=== PATIENT | female | born 1975 | race American Indian/Alaskan Native ===

== ENCOUNTER 2017-08-18 08:51 | Day surgery (SDC) | payer OTHER ==
[2017-08-17 11:03] VITALS: BMI 53.2
[~2017-08-18 08:51] MED LIST: Bupivacaine HCl 0.5% PF (10 ml) Inj ONE; Lidocaine Hydrochloride 5 ML INJ ONE; MethylPREDNISolone Depo 40 mg/ml Inj ONE
[2017-08-18] MEDS ORDERED: Lactated Ringer's 500 ML IV ONE ×2 (10:48)
[2017-08-18] MEDS ORDERED: Midazolam 2 MG/2 ML VIAL ONE (11:06)
[2017-08-18 12:28] VITALS: BP 120/75; PULSE 72; RESP 18; TEMP 97.6; O2SAT 98
--- NOTE | 2017-08-18 13:25 | OP ---
PREOPERATIVE DIAGNOSES: 1. Lumbar spondylosis without myelopathy. 2. Myalgias. POSTOPERATIVE DIAGNOSES: 1. Lumbar spondylosis without myelopathy. 2. Myalgias. PROCEDURE: 1. Bilateral L3-L4, L4-L5, L5-S1 medial branch blocks. 2. Trigger point injections. X-RAY: [id number], fluoroscopy of the spine. ANESTHESIA: MAC/local. SURGEON: José Cho MD COMPLICATIONS: None. BLOOD LOSS: 2 mL. INDICATION: On physical exam, this patient's pain was made worse by side bending toward the affected side or extending the spine (backward bending). The patient's back will generally feel stiff in the morning, and prolonged inactivity such as sitting, standing for prolonged periods causes the axial pain to refer to the mid lower back. This pain is intractable and unresponsive to conservative management. The pain is adversely affecting quality of life and activities of daily living. TECHNIQUE: After comprehensive informed consent was obtained, the risks of the procedure explained and questions answered. The patient was placed prone on the operating table in a comfortable position. Confirmation of the procedure to be performed was obtained from the patient. The skin overlying the area to be injected was confirmed and cleaned in a strict sterile fashion using chlorhexidine. Sterile drape was placed around the area to be injected. The area to be injected was superficially anesthetized with 1 mL of 1% lidocaine using a 27-gauge, 1.25-inch needle at each level noted above. Under fluoroscopic guidance, a curved 22-gauge, 3.5-inch spinal needle was advanced until the tip of the needle was ventro-medial to position the tip adjacent to the articular pillar, in contact with bone midway between the zygapophyseal joints above and below. The patient experienced no paresthesia during needle placement. The bone was contacted, and the C-arm was rotated laterally to confirm proper needle placement. The patient experienced no paresthesias in the upper extremities during needle placement. After negative aspiration for blood, 0.5 mL of non-ionic contrast was injected to outline the medial branch nerve. Then, 1 mL of a mixture of 0.25% Marcaine and 80 mg of Depo-Medrol was slowly injected at each level. The needle was removed, and a Band-Aid was placed over the puncture site. The fluoroscopic image was stored for the medical record. Trigger Point Injections: A 27-gauge needle was used to inject trigger point areas in paralumbar muscles, parathoracic muscles, and upper gluteal muscles. Needle was redirected to sciatic nerve branches. Total volume of 12 mL of 0.25% Marcaine mixed with 40 mg Kenalog. Intermittent aspiration was done throughout with no heme or CSF aspirated throughout. Patient tolerated procedure well. ASSESSMENT: Upon discharge, the patient noted more than 80% relief in the affected painful area. The patient was given a pain diary to utilize over the next 4 hours while performing activities that are normally aggravating. This will provide a quantitative value of how much of the pain is related to osteoarthritis of the facets. The patient understands that this block is diagnostic and temporary. If there is significant pain relief during the next 4 hours, we will schedule for radiofrequency ablation of the offending pain fibers around the affected facet joints to help provide long-term relief. DISPOSITION: Patient was given instructions to follow up in two weeks and was discharged in stable condition. No events or complications. José Cho MD
--- NOTE | 2017-08-19 15:21 | RAD ---
PROCEDURE: HISTORY: Fluoroscopy provided for stated lumbar facet block COMPARISON: None TECHNIQUE: Total fluoroscopic time utilized during the procedure: 44.2 seconds. Total dose 0.21117 mGy cm squared FINDINGS: Submitted images from the current procedure: 3 Please refer to the physician's notes performing the procedure. IMPRESSION: Less than 1 hour fluoroscopic time utilized during performance of the procedure
== END 2017-08-18 12:28 | disposition home or self-care (01) ==
LOC: C.SDS 08:51
PROVIDERS: ATTEND Anesthesiology Pain Medicine
DX: M47.817 Spondylosis without myelopathy or radiculopathy, lumbosacral region (principal); M47.816 Spondylosis without myelopathy or radiculopathy, lumbar region; N92.0 Excessive and frequent menstruation with regular cycle
CPT/HCPCS: 64493; 82948; J1030; J2250; J3010; J7120

== ENCOUNTER 2017-09-15 07:19 | Day surgery (SDC) | payer OTHER ==
[2017-08-17 11:03] VITALS: BMI 53.2
[2017-09-15] MEDS ORDERED: MethylPREDNISolone Depo 40 mg/ml Inj ONE (08:09)
[2017-09-15] MEDS ORDERED: Lidocaine Hydrochloride 5 ML INJ ONE (08:09)
[2017-09-15] MEDS ORDERED: Bupivacaine HCl 0.25% PF (10 ml) Inj ONE (08:09)
[2017-09-15] MEDS ORDERED: Propofol 10 mg/ml Inj (20 ML) ONE (08:34)
[2017-09-15] MEDS ORDERED: Midazolam 2 MG/2 ML VIAL ONE (08:52)
[2017-09-15] MEDS ORDERED: Lactated Ringer's 1,000 ML IV ONE (09:03)
[2017-09-15 12:04] VITALS: BP 110/60; PULSE 90; RESP 18; TEMP 98.5; O2SAT 100
--- NOTE | 2017-09-15 15:27 | RAD ---
PROCEDURE: Fluoroscopy HISTORY: SPONDYLOSIS COMPARISON: None TECHNIQUE: Total fluoroscopic time (continuous mode) utilized during the procedure: 29.0 seconds FINDINGS: Submitted images from the current procedure: 6.0 IMPRESSION: Dosimetry 0.545 mGy meter sq.
--- NOTE | 2017-09-16 07:28 | OP ---
PROCEDURE DATE: 09/15/2017 PREOPERATIVE DIAGNOSES: 1. Lumbar spondylosis without myelopathy. 2. Myalgias. POSTOPERATIVE DIAGNOSES: 1. Lumbar spondylosis without myelopathy. 2. Myalgias. PROCEDURE: 1. Right and left L3-L4, L4-L5 and L5-S1 medial branch blocks. 2. Trigger point injections. X-RAY: [id number], fluoroscopy of the spine. ANESTHESIA: MAC/local. SURGEON: José Cho MD COMPLICATIONS: None. BLOOD LOSS: 2 mL. INDICATION: On physical exam, this patient's pain was made worse by side bending toward the affected side or extending the spine (backward bending). The patient's back will generally feel stiff in the morning, and prolonged inactivity such as sitting, standing for prolonged periods causes the axial pain to refer to the mid lower back. This pain is intractable and unresponsive to conservative management. The pain is adversely affecting quality of life and activities of daily living. TECHNIQUE: After comprehensive informed consent was obtained, the risks of the procedure explained and questions answered. The patient was placed prone on the operating table in a comfortable position. Confirmation of the procedure to be performed was obtained from the patient. The skin overlying the area to be injected was confirmed and cleaned in a strict sterile fashion using chlorhexidine. Sterile drape was placed around the area to be injected. The area to be injected was superficially anesthetized with 1 mL of 1% lidocaine using a 27-gauge, 1.25-inch needle at each level noted above. Under fluoroscopic guidance, a curved 22-gauge, 3.5-inch spinal needle was advanced until the tip of the needle was ventro-medial to position the tip adjacent to the articular pillar, in contact with bone midway between the zygapophyseal joints above and below. The patient experienced no paresthesia during needle placement. The bone was contacted, and the C-arm was rotated laterally to confirm proper needle placement. The patient experienced no paresthesias in the upper extremities during needle placement. After negative aspiration for blood, 0.5 mL of non-ionic contrast was injected to outline the medial branch nerve. Then, 1 mL of a mixture of 0.25% Marcaine and 80 mg of Depo-Medrol was slowly injected at each level. The needle was removed, and a Band-Aid was placed over the puncture site. The fluoroscopic image was stored for the medical record. Trigger Point Injections: A 27-gauge needle was used to inject trigger point areas in paralumbar muscles, parathoracic muscles, and upper gluteal muscles. Needle was redirected to sciatic nerve branches. Total volume of 12 mL of 0.25% Marcaine mixed with 40 mg Kenalog. Intermittent aspiration was done throughout with no heme or CSF aspirated throughout. Patient tolerated procedure well. ASSESSMENT: Upon discharge, the patient noted more than 80% relief in the affected painful area. The patient was given a pain diary to utilize over the next 4 hours while performing activities that are normally aggravating. This will provide a quantitative value of how much of the pain is related to osteoarthritis of the facets. The patient understands that this block is diagnostic and temporary. If there is significant pain relief during the next 4 hours, we will schedule for radiofrequency ablation of the offending pain fibers around the affected facet joints to help provide long-term relief. DISPOSITION: Patient was given instructions to follow up in two weeks and was discharged in stable condition. No events or complications. José Cho MD
== END 2017-09-15 10:15 | disposition home or self-care (01) ==
LOC: C.SDS 07:19
PROVIDERS: ATTEND Anesthesiology Pain Medicine
DX: M47.817 Spondylosis without myelopathy or radiculopathy, lumbosacral region (principal)
CPT/HCPCS: 64493; 82948; J1030; J2250; J2704; J3010; J7120

== ENCOUNTER 2018-05-04 07:45 | Day surgery (SDC) | payer OTHER ==
[2017-08-17 11:03] VITALS: BMI 53.2
[~2018-05-04 07:45] MED LIST changes: +Bupivacaine 0.25% 20 ML INJ IJ ONE; +Bupivacaine 0.75% Inj(30mL) ONE; -Bupivacaine HCl 0.5% PF (10 ml) Inj ONE; +Iohexol 240 (50 ml) ONE; +Lidocaine 2% MPF (5 ml) Inj ONE; -Lidocaine Hydrochloride 5 ML INJ ONE; -MethylPREDNISolone Depo 40 mg/ml Inj ONE; +Midazolam 2 MG/2 ML VIAL ONE; +methylPREDNISolone Depo 80 mg/ml Inj ONE
[2018-05-04 11:31] VITALS: BP 141/79; PULSE 93; RESP 18; TEMP 97.7; O2SAT 98
--- NOTE | 2018-05-04 17:05 | RAD ---
Date of service: 05/04/2018 PROCEDURE: Intraoperative Fluoroscopy. HISTORY: CERVICAL RADICULOPATHY FINDINGS: Fluoroscopic assistance was provided for cervical epidural spinal injection. Please refer to the operative report from AYANNA Ferrera.
--- NOTE | 2018-05-04 19:59 | OP ---
Copied To: José Cho MD Attending MD: José Cho MD PROCEDURE DATE: 05/04/2018 PREOPERATIVE DIAGNOSES: 1. Cervical radiculopathy. 2. 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 3. Myalgias. POSTOPERATIVE DIAGNOSES: 1. Cervical radiculopathy. 2. 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 3. Myalgias. PROCEDURE: 1. Cervical epidural steroid injection, C6-C7. 2. Epidurogram. 3. Trigger point injections. X-RAY: [id number], fluoroscopy of the spine. ANESTHESIA: MAC/local. SURGEON: José Cho MD COMPLICATIONS: None. BLOOD LOSS: 2 mL. BRIEF HISTORY AND INDICATIONS: The patient has cervical radiculopathy and upper extremity pain and tingling radiating down from the posterior neck down to the arm and posterior shoulder side to all fingers. This patient presents today for a cervical epidural steroid injection under fluoroscopic guidance at the C6-C7 interlaminar space. PROCEDURE IN DETAIL: The patient, after giving informed consent for the procedure, was brought back to the procedure room, sitting in a wheelchair. Routine monitors were applied. The patient was leant forward with his neck flexed and forehead placed on a towel on the OR table. Neck was flexed at approximately 50 degrees lateral. Lateral fluoroscopic view was obtained at the C6-C7 levels. The patient was prepped and draped in a sterile fashion. A 27-gauge needle was used to inject lidocaine 1% subcutaneously over the skin overlying the interlaminar space of C6-C7. Subsequently, a 22-gauge Tuohy needle was used to advance into the C6-C7 interlaminar area using loss of resistance technique to enter the epidural space. The needle position was confirmed in lateral views. Contrast 180 Omnipaque was injected 0.5 mL showing good epidurogram. Subsequently, 80 mg of Depo-Medrol with 1 mL of normal saline was injected with intermittent negative aspiration. No heme or CSF was aspirated throughout. No paresthesias were elicited throughout. The patient tolerated the procedure well. Vital signs remained stable. The patient reported slight reduction in pain post procedure. Epidurogram: The patient underwent cervical epidural steroid injection today. The epidural was observed at the level of C6-C7 under AP and lateral fluoroscopic guidance. 2 mL of Omnipaque 200 contrast was injected that evenly spread from level C4 to C7 level with posterior-anterior dye spread bilaterally at level of C6-C7 and C5-C6. There appeared to be a moderate degree spondylosis at the level of C5-C6 and moderate degree of spondylosis at the level of C6-C7 with disc protrusion at the level of C6-C7. The intervertebral disc height at the level of C5-C6 was slightly less than normal and intervertebral disc height at the level of C7-T1 was well maintained. The neural foramen appeared to be patent. Conclusion: Good epidural dye containment from C6-C7 with intervertebral disc protrusion at the level of C5-C6, C6-C7, maintaining less than normal intervertebral disc height at level C5-C6. Spondylosis noted at the level of C4 through T1. Copies of the images are on file. Trigger Point Injections/Greater and Lesser Occipital Nerve Blocks: Tender to palpation on cervical areas and pain shooting up posterior head. Patient signed informed consent. Cervical area was prepped and drapped in sterile fashion. A 25-gauge needle was used to inject trigger point areas in trapezious muscles, paracervical muscles, and rhomboids bilaterally. The greater and lesser occipital nerves were also injected bilaterally by inserting needle 1 cm lateral and inferior to the posterior occipital protuberance. Total volume used was 10 mL of 0.25% Marcaine mixed with 40 mg Kenalog. Intermittant aspiration was done throughout with no heme or CSF aspirated throughout. Patient tolerated procedure well. DISPOSITION: Patient was taken to the recovery room in stable condition. Patient was given instructions to follow up in two weeks and was discharged in stable condition. No events or complications. José Cho MD
== END 2018-05-04 10:00 | disposition home or self-care (01) ==
LOC: C.SDS 07:45
PROVIDERS: ATTEND Anesthesiology Pain Medicine
DX: M54.12 Radiculopathy, cervical region (principal); M50.20 Other cervical disc displacement, unspecified cervical region; M47.22 Other spondylosis with radiculopathy, cervical region
CPT/HCPCS: 62321; 82948; J1040; J2250; J3010; Q9966